=== PATIENT | female | born 1985 | race Caucasian/White ===

== ENCOUNTER 2019-12-12 15:46 | Outpatient (CLI) | payer OTHER, SELFPAY ==
--- NOTE | ~2019-12-12 | XR_ITS ---
EXAMINATION: XR chest 2V EXAM DATE: 12/12/2019 16:08 INDICATION: Cough for 5 months. TECHNIQUE: Frontal and lateral projections of the chest obtained and reviewed. There is no prior benjamín dy for comparison. FINDINGS: The lungs are clear. There are no pleural effusions. The cardiomediastinal silhouette is within normal limits. There is no pneumothorax suspected. The bones and soft tissues are unremarkab le. IMPRESSION: Unremarkable chest x-ray exam. Reviewed, dictated and finalized at location [facility]. [facility]
== END 2019-12-12 15:47 | disposition home or self-care (01) ==
LOC: ANHIMG 15:49
PROVIDERS: PCP Internal Medicine; Visit Provider Internal Medicine
DX: R05 Cough (principal)
CPT/HCPCS: 71046

== ENCOUNTER 2019-12-20 07:31 | Outpatient (CLI) | payer OTHER, SELFPAY ==
[2019-12-20 08:26] LABS: Blood Urea Nitrogen 12 mg/dL (7-17); Calcium 9.1 mg/dL (8.4-10.2); Carbon Dioxide 30 mmol/L (22-30); Chloride 103 mmol/L (98-107); Cholesterol 145 mg/dL (0-200); Estimated Glomerular Filt Rate > 60; Glucose 89 mg/dL (65-105); HDL Direct 72 mg/dL; Potassium 4.1 mmol/L (3.4-5.0); Sodium 137 mmol/L (137-145); Triglycerides 46 mg/dL (<150)
[2019-12-20 08:37] LABS: LDL Cholesterol Direct 67 mg/dL
== END 2019-12-20 07:32 | disposition home or self-care (01) ==
PROVIDERS: PCP Internal Medicine; Visit Provider Internal Medicine
DX: Z13.220 Encounter for screening for lipoid disorders (principal); Z13.6 Encounter for screening for cardiovascular disorders
CPT/HCPCS: 36415; 80048; 80061

== ENCOUNTER 2020-02-28 08:23 | Outpatient (CLI) | payer OTHER, SELFPAY ==
--- NOTE | ~2020-02-28 | CT_ITS ---
EXAMINATION: CT sinus wo con DATE: 02/28/2020 08:49 INDICATION: Chronic congestion. Chronic sinusitis. TECHNIQUE: Computed tomography (CT) of the paranasal sinuses was performed without contrast. Iterativ e reconstruction technique was employed. Exam dose: 321.89 mGy-cm total exam DLP. COMPARISON: None FINDINGS: There is leftward deviation of the anterior portion of the nasal septum. The nasal turbinates are prominent and relatively symmetric in size. The ostiomeatal units are patent bilaterally. The paranasal sinuses are normally developed and aerated. No mucoperiosteal thickening, opacification , fluid level or soft tissue mass density is evident. The mastoid air cells are normally developed and aerated. Middle and inner ear apparatus appear jeferson l bilaterally. IMPRESSION: Patent ostiomeatal units, paranasal sinuses and mastoid air cells Reviewed, dictated and finalized at [facility]. Reviewed, dictated and finalized at location A.
== END 2020-02-28 08:24 | disposition home or self-care (01) ==
LOC: ANHIMG 08:26
PROVIDERS: PCP Internal Medicine; Visit Provider Allergy & Immunology
DX: R10.9 Unspecified abdominal pain (principal); J32.9 Chronic sinusitis, unspecified
CPT/HCPCS: 70486

== ENCOUNTER 2020-08-31 06:53 | Outpatient (NON) | payer OTHER, SELFPAY ==
[2020-09-02 18:10] LABS: SARS-CoV-2 RNA PCR Negative
== END 2020-08-31 06:54 ==
LOC: ANHCOVIDDT 07:06
PROVIDERS: PCP Internal Medicine; Visit Provider Internal Medicine
DX: Z20.828 Contact with and (suspected) exposure to other viral communicable diseases (principal)
CPT/HCPCS: 87635; C9803; U0003